=== PATIENT | female | born 1950 | race Caucasian/White ===

== ENCOUNTER 2020-10-05 18:00 | Inpatient (IN) ==
[2020-10-05] MEDS ORDERED: 0.9 % Sodium Chloride 1,000 ML IVC ONE ×2 (20:18→23:08)
[2020-10-05] MEDS ORDERED: 0.9 % Sodium Chloride 1,000 ML ONE (20:19)
[2020-10-05] MEDS ORDERED: D5% in Water 1,000 ML IVC PRN (20:23)
[2020-10-05] MEDS ORDERED: Dextrose Gel 15 GM/37.5 ML TUBE PO PRN ×2 (20:23)
[2020-10-05] MEDS: *HR* Dextrose 50 % in Water (Vial) 50 ML VIAL IVP PRN ×2 (20:25→20:40)
[2020-10-05] MEDS ORDERED: *HR* Dextrose 50 % in Water (Vial) 50 ML VIAL ONE (20:26)
[2020-10-05] MEDS ORDERED: Naloxone 0.4 MG/ML INJ IVP PRN (20:53)
[2020-10-05] MEDS ORDERED: Ondansetron 4 MG/2 ML VIAL IVP PRN (20:53)
[2020-10-05] MEDS ORDERED: Acetaminophen 325 MG TABLET PO PRN (20:53)
[2020-10-05 21:40] LABS: Basophils % 0.1 %; Hemoglobin 10.4 g/dL (11.5-15.4); Immature Granulocytes % 0.9 % (0-4); Lymphocytes # 0.7 K/mcL (0.6-4.6); Mean Corpuscular HGB Conc 30.6 g/dL (31.6-35.5); Mean Platelet Volume 10.3 fL (9.4-12.4); Monocytes % 8.2 %; Nucleated Red Blood Cells 0.1 /100 WBC (0); Platelet Count 351 K/mcL (140-400); Red Blood Count 3.47 M/mcL (3.82-4.97); Red Cell Distribution Width 14.9 % (11.5-14.5); Segmented Neutrophils % 87.8 %; White Blood Count 24.1 K/mcL (4.3-11.1)
[2020-10-05 21:41] LABS: INR 2.3; Prothrombin Time 26.2 Seconds (9.4-12.1)
[2020-10-05 21:42] LABS: Neutrophils # 21.2 K/mcL (1.6-8.9)
[2020-10-05 21:58] LABS: Magnesium 2.2 mg/dL (1.6-2.6); Phosphorous 7.3 mg/dL (2.7-4.5)
[2020-10-05 22:07] LABS: Calcium 7.6 mg/dL (8.6-10.3); Hypochromasia Present (Not Present); Platelet Estimate Normal (Normal); Potassium 4.8 mEq/L (3.5-5.1); Toxic Granulation Present (Not Present)
[2020-10-05 22:08] LABS: Toxic Vacuolation Present (Not Present)
[2020-10-05 22:10] LABS: Troponin I 0.11 ng/mL (< 0.04)
[2020-10-06] MEDS ORDERED: *HR* LORazepam 2 MG/ML VIAL IVP ONE (01:48)
[2020-10-06] MEDS ORDERED: *HR* LORazepam 2 MG/ML VIAL IM ONE (01:49)
[2020-10-06] MEDS ORDERED: Perflutren Lipid Microsphere 1.3 ML in 0.9 % Sodium Chloride 8.7 ML IVP PRN (03:33)
[2020-10-06] MEDS ORDERED: *HR* Heparin 5,000 UNIT/ML VIAL IVP PRN ×2 (05:11)
[2020-10-06] MEDS ORDERED: Heparin 25,000UNIT/250ML 1/2NS 25,000 UNIT/250 ML IV.SOLN IVC SCH (05:15)
[2020-10-06] MEDS ORDERED: D5% in Water 1,000 ML IVC PRN (05:19)
[2020-10-06 05:42] LABS: Nucleated Red Blood Cells 0.1 /100 WBC (0)
[2020-10-06 05:43] LABS: Hematocrit 33.5 % (35.3-44.9); Mean Corpuscular HGB Conc 29.9 g/dL (31.6-35.5); Mean Corpuscular Volume 103.7 fL (83.0-100.0); Platelet Count 259 K/mcL (140-400); Red Blood Count 3.23 M/mcL (3.82-4.97); Red Cell Distribution Width 15.2 % (11.5-14.5); White Blood Count 26.5 K/mcL (4.3-11.1)
[2020-10-06] MEDS: *HR* Dextrose 50 % in Water (Vial) 50 ML VIAL IVP PRN ×2 (05:53→05:54)
[2020-10-06] MEDS ORDERED: Cefepime HCl 2,000 MG in Water for inj. (sterile) 20 ML IVP SCH (06:00)
[2020-10-06] MEDS ORDERED: 0.9 % Sodium Chloride 1,000 ML ONE ×2 (06:11→07:24)
[2020-10-06 06:17] LABS: Heparin anti-factor XA UFH < 0.04 IU/mL (0.30-0.70)
[2020-10-06 06:18] LABS: INR 2.6; Prothrombin Time 29.5 Seconds (9.4-12.1)
[2020-10-06 06:19] LABS: ABG Base Excess -24 mEq/L (-2 to 3); ABG HCO3 6 mEq/L (21-27); ABG Oxygen Saturation 99 % (95-98); ABG PCO2 29 mmHg (35-45); ABG PH 6.94 pH Units (7.32-7.45); ABG PO2 188 mmHg (85-104); ABG TCO2 7 mEq/L (20-26)
[2020-10-06 06:25] LABS: Albumin 2.7 g/dL (3.5-5.7); Bilirubin,Total 0.8 mg/dL (0.3-1.0); Globulin 2.7 g/dL (2.4-3.5); Phosphorous 10.1 mg/dL (2.7-4.5); Potassium 5.2 mEq/L (3.5-5.1); Total Protein 5.4 g/dL (6.4-8.9); Troponin I 0.2 ng/mL (< 0.04)
[2020-10-06 06:36] LABS: Lymphocytes # 1.1 K/mcL (0.6-4.6); Monocytes # 0.5 K/mcL (0.0-1.3); Neutrophils # 23.9 K/mcL (1.6-8.9); Platelet Estimate Normal (Normal); Toxic Vacuolation Present (Not Present)
[2020-10-06 06:37] LABS: Burr Cells 1+ (Not Present); Toxic Granulation Present (Not Present)
[2020-10-06] MEDS ORDERED: Sodium Bicarbonate 75 MEQ in 0.45 % Sodium Chloride 1,000 ML IVC SCH (06:45)
[2020-10-06] MEDS ORDERED: Norepinephrine 4 MG/254 ML IV.SOLN IVC SCH (07:30)
[2020-10-06] MEDS ORDERED: Midazolam HCl 50 MG/100 ML IV.SOLN IVC SCH (08:30)
[2020-10-06] MEDS ORDERED: WATER IVC ONE (08:34)
[2020-10-06] MEDS ORDERED: ACETYLCYSTEINE IVC ONE (08:34)
[2020-10-06] MEDS ORDERED: D5 IVC ONE (08:34)
[2020-10-06] MEDS ORDERED: cefTRIAXone 1,000 MG in Water for inj. (sterile) 10 ML IVP SCH (09:00)
[2020-10-06] MEDS ORDERED: Acetylcysteine 3,300 MG in D5% in Water 500 ML IVC ONE (10:00)
[2020-10-06] MEDS ORDERED: Hydrocortisone Sodium Succ 100 MG/2 ML VIAL IVP SCH (10:26)
[2020-10-06 10:55] LABS: Nucleated Red Blood Cells 0.4 /100 WBC (0)
[2020-10-06 10:56] LABS: Hematocrit 31.7 % (35.3-44.9); Hemoglobin 9.5 g/dL (11.5-15.4); Mean Corpuscular Hemoglobin 30.5 pg (28.0-33.3); Mean Corpuscular Volume 101.9 fL (83.0-100.0); Mean Platelet Volume 9.8 fL (9.4-12.4); Platelet Count 190 K/mcL (140-400); Red Blood Count 3.11 M/mcL (3.82-4.97); Red Cell Distribution Width 15.5 % (11.5-14.5)
[2020-10-06] MEDS ORDERED: Pantoprazole 40 MG VIAL IVP SCH ×2 (11:00→18:00)
[2020-10-06] MEDS ORDERED: Norepinephrine 16 MG in 0.9 % Sodium Chloride 500 ML IVC SCH (11:00)
[2020-10-06 11:03] LABS: White Blood Count 30.3 K/mcL (4.3-11.1)
[2020-10-06 11:08] LABS: INR 2.7; Prothrombin Time 30.7 Seconds (9.4-12.1)
[2020-10-06 11:10] LABS: Activated Partial Thrombo Time 42.5 Seconds (26.0-36.0)
[2020-10-06 11:19] LABS: Lymphocytes # 1.8 K/mcL (0.6-4.6); Monocytes # 0.6 K/mcL (0.0-1.3); Neutrophils # 26.4 K/mcL (1.6-8.9)
[2020-10-06 11:20] LABS: Anisocytosis 1+ (Not Present); Burr Cells 2+ (Not Present); Platelet Estimate Normal (Normal); Toxic Granulation Present (Not Present); Toxic Vacuolation Present (Not Present)
[2020-10-06] MEDS ORDERED: Sodium Bicarbonate 150 MEQ in D5% in Water 1,000 ML IVC SCH (11:30)
[2020-10-06 11:34] LABS: Alanine Aminotransferase 2711 Units/L (7-52); Albumin 2.4 g/dL (3.5-5.7); Alkaline Phosphatase 229 Units/L (34-104); Aspartate Amino Transferase > 3000 Units/L (13-39); BUN/Creatinine Ratio 32 (6-26); Bilirubin,Total 1.1 mg/dL (0.3-1.0); Blood Urea Nitrogen 63 mg/dL (8-23); Calcium 6.6 mg/dL (8.6-10.3); Carbon Dioxide 10 mEq/L (23-29); Chloride 113 mEq/L (98-107); Globulin 2.5 g/dL (2.4-3.5); Glucose 144 mg/dL (70-105); Osmolality,Calculated 325 (280-300); Potassium 4.9 mEq/L (3.5-5.1); Sodium 147 mEq/L (136-145); Total Protein 4.9 g/dL (6.4-8.9); eGFR For African Americans 31 (> 60); eGFR For Non-African Americans 25 (> 60)
[2020-10-06 12:03] LABS: Creatine Kinase 1347 Units/L (30-223)
[2020-10-06 12:43] VITALS: BP 99/42
[2020-10-06] MEDS ORDERED: Acetylcysteine 6,600 MG in D5% in Water 1,000 ML IVC ONE (14:00)
[2020-10-06] MEDS ORDERED: *HR* Etomidate 20 MG/10 ML AMPUL IVP ONE (14:53)
[2020-10-06] MEDS ORDERED: Azithromycin 500 MG in D5% in Water 250 ML IVPB SCH (18:00)
[2020-10-08 21:41] LABS: Insulin, Free <1 uIU/mL (3-19)
[2020-10-08 22:34] LABS: Insulin, Total <1 uIU/mL (3-19)
== END 2020-10-06 14:54 | disposition expired | DRG 720 ==
LOC: 3BNU → 2NNU 22:39 → ICNU 10-06 10:24
PROVIDERS: ADMIT Internal Medicine; ATTEND Internal Medicine